=== PATIENT | male | born 1970 | race Caucasian/White ===

== ENCOUNTER 2017-05-28 12:57 | Observation (INO) | payer BC ==
[2017-05-28] VITALS (7 sets, daily range): BP systolic 101–124; BP diastolic 67–75; PULSE 75–102; RESP 16–18; TEMP 98.1–98.4; O2SAT 95–100
[~2017-05-28 12:57] MED LIST: DEXAMETHASONE SOD PHOS 4 MG/ML VIAL IV ONE; GLYCOPYRROLATE 1 MG/5 ML SYRINGE IV PUSH ONE; KETOROLAC TROMETHAMINE 30 MG/ML (IVP) VIAL IV PUSH ONE; LABETALOL HCL 100 MG/20 ML VIAL IV ONE; LIDOCAINE HCL 1% PF 5 ML AMPULE OTHER ONE; MIDAZOLAM HCL 2 MG/2 ML VIAL IV ONE; NEOSTIGMINE 3 MG/3 ML SYR IV ONE; ONDANSETRON HCL 4 MG/2 ML VIAL IV PUSH ONE; PHENYLEPH/NS 1000 MCG/10 ML SYR IV ONE; PROPOFOL 200 MG/20 ML AMP IV ONE; ROCURONIUM INJ 50 MG/5 ML SYRINGE IV PUSH ONE; SODIUM CHLOR 0.9% 1000 ML INJ 1,000 ML IV ONE; SUCCINYLCHOLINE CHLORIDE 100 MG/5 ML SYRINGE IV PUSH ONE; VECURONIUM BROMIDE 20 MG VIAL IV ONE
[2017-05-28] MEDS ORDERED: NS + KCL 20 MEQ INJ 1,000 ML IV SCH (14:15)
[2017-05-28] MEDS ORDERED: CLINDAMYCIN 600 MG PREMIX 50 ML IV ONE (14:15)
--- NOTE | 2017-05-28 14:15 | PD ---
HPI Chief Complaint: Facial Pain or Swelling Time Seen by Provider: 13:54 Travel History International Travel<30 days: No Contact w/Intl Traveler<30days: No Traveled to known affect area: No History of Present Illness HPI The patient is a 46-year-old male who presents emergency department for left jaw swelling over the last week. The patient was seen by his dentist in [place], [place], one week ago. The patient was placed on clindamycin. However, he states the swelling got worse and he has been unable to open his mouth for the last several days. The patient saw the oral maxillofacial surgeon , Dr. Tavares, this morning in the office and [place], [place]. The patient was referred to the hospital for CT of the facial bones with IV contrast , admission to the medical service, with operative management later today. Patient states he has difficulty opening his mouth secondary to pain with limited range of motion. He has been able to drink fluids through a straw. He denies any shortness of breath or chest pain. The patient did receive Unasyn and Decadron in Dr. Tavares's office prior to arrival. The patient denies any chronic medical problems. He takes no medications on a regular basis except for clindamycin which was recently prescribed. He does have a history of tobacco use. [facility] Past Medical History Medical History: Denies Significant Hx Diminished Hearing: No Tetanus Vaccination: > 5 Years Influenza Vaccination: No Past Surgical History Surgical History: No Previous Surgery Social History Alcohol Use: No Tobacco Use: Yes (2ppd) Substance Use: No Allergies-Medications (Allergen,Severity, Reaction): Coded Allergies: No Known Allergies (Unverified , 05/28/17) Reported Meds & Prescriptions Reported Meds & Active Scripts Active No Active Prescriptions or Reported Medications Review of Systems Except as stated in HPI: all other systems reviewed are Neg General / Constitutional: No: Fever HENT: Positive: Other (as noted in the history of present illness), No: Lightheadedness Cardiovascular: No: Chest Pain or Discomfort Respiratory: No: Shortness of Breath Gastrointestinal: No: Nausea, Vomiting, Abdominal Pain Musculoskeletal: No: Weakness Neurologic: No: Dizziness Physical Exam Narrative GENERAL: Awake, alert, pleasant 46-year-old male who appears his stated age and is in no acute respiratory distress. SKIN: Focused skin assessment warm/dry. HEAD: Atraumatic. Normocephalic. EYES: Pupils equal and round. No scleral icterus. No injection or drainage. ENT: No nasal bleeding or discharge. Patient has visible trismus. Limited range of motion with opening her mouth. Mild tenderness upon the lawn were posterior aspect of the mouth. Swelling over the left maxilla and mandibular area noted. NECK: Trachea midline. No JVD. Mild left cervical adenopathy noted. CARDIOVASCULAR: Regular, tachycardic with a heart rate of 102. RESPIRATORY: No accessory muscle use. Clear to auscultation. Breath sounds equal bilaterally. GASTROINTESTINAL: Abdomen soft, non-tender, nondistended. No rebound tenderness. MUSCULOSKELETAL: No obvious deformities. No clubbing. No cyanosis. No edema. NEUROLOGICAL: Awake and alert. No obvious cranial nerve deficits. Motor grossly within normal limits. Normal speech. PSYCHIATRIC: Appropriate mood and affect; insight and judgment normal. Data Data Last Documented VS Vital Signs Date Time Temp Pulse Resp B/P (MAP) Pulse Ox O2 Delivery O2 Flow Rate FiO2 05/28/17 15:39 87 16 106/69 (81) 97 Room Air Orders Orders Complete Blood Count With Diff (05/28/17 13:16) Basic Metabolic Panel (Bmp) (05/28/17 13:16) Coag Profile (05/28/17 13:16) Ns + Kcl 20 Meq Inj (Ns + Kcl 20 Meq Inj (05/28/17 14:15) Clindamycin 600 Mg Premix (Cleocin 600 M (05/28/17 14:15) NPO (05/28/17 14:04) Ct Facial Bones W Iv Contrast (05/28/17 ) Admit Order (Ed Use Only) (05/28/17 ) Vital Signs (Adult) Q4H (05/28/17 15:45) Diet Npo (05/28/17 Dinner) Activity Oob With Assistance (05/28/17 15:45) Consult Oral, Facial Surgery (05/28/17 ) Labs Laboratory Tests Test 05/28/17 14:15 White Blood Count 11.1 TH/MM3 Red Blood Count 4.99 MIL/MM3 Hemoglobin 15.8 GM/DL Hematocrit 45.8 % Mean Corpuscular Volume 91.8 FL Mean Corpuscular Hemoglobin 31.7 PG Mean Corpuscular Hemoglobin Concent 34.5 % Red Cell Distribution Width 12.8 % Platelet Count 394 TH/MM3 Mean Platelet Volume 7.2 FL Neutrophils (%) (Auto) 91.8 % Lymphocytes (%) (Auto) 5.9 % Monocytes (%) (Auto) 1.3 % Eosinophils (%) (Auto) 0.6 % Basophils (%) (Auto) 0.4 % Neutrophils # (Auto) 10.2 TH/MM3 Lymphocytes # (Auto) 0.7 TH/MM3 Monocytes # (Auto) 0.1 TH/MM3 Eosinophils # (Auto) 0.1 TH/MM3 Basophils # (Auto) 0.0 TH/MM3 CBC Comment DIFF FINAL Differential Comment Prothrombin Time 11.0 SEC Prothromb Time International Ratio 1.0 RATIO Activated Partial Thromboplast Time 30.1 SEC Blood Urea Nitrogen 5 MG/DL Creatinine 0.77 MG/DL Random Glucose 102 MG/DL Calcium Level 9.5 MG/DL Sodium Level 139 MEQ/L Potassium Level 4.6 MEQ/L Chloride Level 104 MEQ/L Carbon Dioxide Level 29.6 MEQ/L Anion Gap 5 MEQ/L Estimat Glomerular Filtration Rate 108 ML/MIN [facility] Medical Decision Making Medical Screen Exam Complete: Yes Emergency Medical Condition: Yes Medical Record Reviewed: Yes Interpretation(s) Laboratory Tests Test 05/28/17 14:15 White Blood Count 11.1 TH/MM3 Red Blood Count 4.99 MIL/MM3 Hemoglobin 15.8 GM/DL Hematocrit 45.8 % Mean Corpuscular Volume 91.8 FL Mean Corpuscular Hemoglobin 31.7 PG Mean Corpuscular Hemoglobin Concent 34.5 % Red Cell Distribution Width 12.8 % Platelet Count 394 TH/MM3 Mean Platelet Volume 7.2 FL Neutrophils (%) (Auto) 91.8 % Lymphocytes (%) (Auto) 5.9 % Monocytes (%) (Auto) 1.3 % Eosinophils (%) (Auto) 0.6 % Basophils (%) (Auto) 0.4 % Neutrophils # (Auto) 10.2 TH/MM3 Lymphocytes # (Auto) 0.7 TH/MM3 Monocytes # (Auto) 0.1 TH/MM3 Eosinophils # (Auto) 0.1 TH/MM3 Basophils # (Auto) 0.0 TH/MM3 CBC Comment DIFF FINAL Differential Comment Prothrombin Time 11.0 SEC Prothromb Time International Ratio 1.0 RATIO Activated Partial Thromboplast Time 30.1 SEC Blood Urea Nitrogen 5 MG/DL Creatinine 0.77 MG/DL Random Glucose 102 MG/DL Calcium Level 9.5 MG/DL Sodium Level 139 MEQ/L Potassium Level 4.6 MEQ/L Chloride Level 104 MEQ/L Carbon Dioxide Level 29.6 MEQ/L Anion Gap 5 MEQ/L Estimat Glomerular Filtration Rate 108 ML/MIN Differential Diagnosis Differential diagnosis includes dental abscess, trismus, Adonay angina, sialoadenitis, otitis media, cellulitis. Narrative Course IV was established, labs are drawn and sent, and the patient was placed on cardiac telemetry monitoring and continuous pulse oximetry monitoring. I discussed the patient with Dr. Tavares who requests the patient be kept nothing by mouth, CT of the facial bones with IV contrast, and admission to the medical service for definitive operative management later today. He does state the patient received Unasyn 1.5 g and Decadron 8 mg prior to arrival. The patient was placed on IV fluids and administered clindamycin 600 mg intravenously. A call was placed to the on-call medical service for admission. Labs are unremarkable. Physician Communication Physician Communication The on-call medical service was paged for admission. I discussed the patient with Dr. Georges who agrees with 23 hour observation. Diagnosis Primary Impression: Dental abscess Admitting Information Admitting Physician Requests: Admit Scripts No Active Prescriptions or Reported Meds Condition: Stable Tristan Hood MD May 28, 2017 14:15
[2017-05-28 14:58] LABS: AUTOMATED NEUTROPHIL # 10.2 TH/MM3 (1.8-7.7); BASOPHIL % 0.4 % (0.0-2.0); EOSINOPHIL # 0.1 TH/MM3 (0-0.4); EOSINOPHIL % 0.6 % (0.0-4.0); HEMATOCRIT 45.8 % (39.0-51.0); HEMO FLAGS DIFF FINAL; LYMPH % 5.9 % (9.0-44.0); LYMPHOCYTE # 0.7 TH/MM3 (1.0-4.8); MEAN CELL VOLUME 91.8 FL (80.0-100.0); MEAN CORPUSCULAR HEMOGLOBIN 31.7 PG (27.0-34.0); MEAN CORPUSCULAR HGB CONC 34.5 % (32.0-36.0); MONO % 1.3 % (0.0-8.0); NEUT % 91.8 % (16.0-70.0); PLATELET COUNT 394 TH/MM3 (150-450); RED BLOOD COUNT 4.99 MIL/MM3 (4.50-5.90); RED CELL DISTRIBUTION WIDTH 12.8 % (11.6-17.2); WHITE BLOOD COUNT 11.1 TH/MM3 (4.0-11.0)
[2017-05-28 15:07] LABS: BICARBONATE 29.6 MEQ/L (21.0-32.0); POTASSIUM 4.6 MEQ/L (3.5-5.1)
[2017-05-28 15:21] LABS: APTT (PATIENT) 30.1 SEC (24.3-30.1)
[2017-05-28] MEDS ORDERED: IOHEXOL 350 MG/ML 10 ML VIAL (for RAD DIAG) IVCONTRAST ONE (15:50)
[2017-05-28] MEDS ORDERED: NALOXONE HCL 0.4 MG/ML AMP IV PUSH PRN (16:00)
[2017-05-28] MEDS ORDERED: SODIUM CHLORIDE 0.9% FLUSH 10 ML FLUSH IV FLUSH PRN (16:00)
--- NOTE | 2017-05-28 16:23 | RADRPT ---
EXAM DATE/TIME: 05/28/2017 15:47 [facility] COMPARISON: No previous studies available for comparison. INDICATIONS : Left mandible swelling x 1 week. Evaluate for abscess. IV CONTRAST: 70 cc Omnipaque 350 (iohexol) IV RADIATION DOSE: 30.62 CTDIvol (mGy) MEDICAL HISTORY : None SURGICAL HISTORY : None. ENCOUNTER: Initial ACUITY: 1 week PAIN SCALE: 7/10 LOCATION: Left facial TECHNIQUE: Volumetric scanning of the facial bones was performed. Using automated exposure control and adjustme nt of the mA and/or kV according to patient size, radiation dose was kept as low as reasonably achiev able to obtain optimal diagnostic quality images. DICOM format image data is available electronicall y for review and comparison. FINDINGS: There is an impacted left third mandibular molar. There is surrounding lucency consistent with period ontal disease. There is erosion through the lateral cortical margin of the mandible. Directly adjacen t within the masseter muscle on the left is low attenuation change consistent with an infectious proc ess. This measures 2.4 x 1.0 cm. I see no air bubbles within this. Hounsfield units are 42. Small sub mandibular lymph nodes are noted without bulky adenopathy. CONCLUSION: 1. Impacted left third mandibular molar with infectious process including either phlegmon or early ab scess formation involving the deep portion of the left masseter muscle. Berhane Hernandez Jr., MD on May 28, 2017 at 16:17 Board Certified Radiologist. This report was verified electronically.
[2017-05-28] MEDS: SODIUM CHLOR 0.9% 1000 ML INJ 1,000 ML IV SCH ×2 (16:41→22:13)
[2017-05-28] MEDS ORDERED: MICROFIBRILLAR COLLAGEN HEMOSTAT 1 GM PKT ONE (16:56)
[2017-05-28] MEDS ORDERED: CHLORHEXIDINE GLUCONATE 0.12% 15 ML CUP ONE (16:56)
[2017-05-28] MEDS ORDERED: LIDOCAINE 2%/EPINEPHrine PF 1:200,000 20ML SDV ONE (16:57)
--- NOTE | 2017-05-28 17:09 | MB ---
cc: HOMERO TAVARES DMD DATE OF CONSULTATION: 05/28/2017 REASON FOR CONSULTATION: Dental abscess. HISTORY OF PRESENT ILLNESS: This is a 46 year-old male who came to my office early this morning secondary to having discomfort in his lower posterior mandible, he has had trismus. This has been going on for one week and not resolving with the Clindamycin. His dentist is Dr. Duncan. Patient is awake, alert and oriented, times three. No acute distress. Denies any fevers, chills, nausea and vomiting, any shortness of breath or any difficulty breathing. His only chief complaint is he is unable to open his mouth. He was given Unasyn 1.5 mg and Decadron 8 mg then he was sent to [facility] Emergency Department for admission and to take him to the main operating room for extraction of teeth numbers 17 and 18 and incision and drainage of his left mandible abscess. PAST MEDICAL HISTORY: Denied. MEDICATIONS: Denied. ALLERGIES Denied. SOCIAL HISTORY: Two packs per day of smoking. Denies any alcohol, any illicit drug use. PAST SURGICAL HISTORY: Denies. PHYSICAL EXAMINATION: HEAD, EYES, EARS, NOSE, AND THROAT/NECK: Shows some edema in the left maxillary region. There is no neck edema. There is no edema in the posterior aspect of the mandible. Trachea is midline. The angle of the mandible is palpable. Tenderness to palpation on the left maxillary mandible posterior region. Intraorally he has trismus and can barely get one finger into his mouth. He is guarding against pain. There does not appear to be any elevation of the tongue, he is able to move his tongue freely. He is holding his secretions. A Panorex in office shows tooth number 17 which is impacted with radiolucency all around that tooth. Tooth number 18 also looks periodontally involved. CT scan here in the hospital shows tooth number 17 again has a radiolucency around it with a tracts way into the lateral aspect of the mandible, even appears the medial aspect a collection that is noted. Number 18 is also periodontally involved. The position of the nerve is also noted in the 10 lingual cortex. Also noted; is tooth number 31 has a poor prognosis and impacted tooth #30 along with impacted #1 and 16. LABORATORY FINDINGS: White count 11.1 with hemoglobin and hematocrit 15.8 and 45.5 with platelets 394, PT 7.0, INR 1.0 with PTT of 30.0. PHYSICAL EXAMINATION: VITAL SIGNS; Temperature 98.4, respirations 16, blood pressure 106/210, oxygen saturations are 97%. IMPRESSION/PLAN: This is a 46 year-old male, [employer] who has a one week history of swelling in left posterior mandible, trismus worsening with impacted complete bony wisdom tooth number 17 and a periodontally involved #18. Also other wisdom teeth are impacted and tooth #31, that will be addressed at a later time. Right now the plan is to take him to the operating room and extract tooth number 18 and 17, incision and drainage of the left mandible abscess, cough, and possible biopsy of the radiolucency as required around number 17. Benefits, risks and indications of the procedure, procedure in detail with the options of nontreatment including alternatives were discussed with this patient. The risks were not limited to any postoperative infection, bleeding, damage to the edges of teeth, soft tissue, hard tissue and anesthesia complications, numbness, recurrence of the infection, further surgeries as required. The patient is aware we may do some of the drains through the neck. The patient was also counseled on maintaining good oral hygiene has he has poor dentition and poor oral hygiene. All questions and concerns were discussed. His temperature now is 98.4. ADDENDUM CT scan also checking the neck there is no airway deviation. No constriction of the airway that is noted. Homero Tavares DMD RRT/ /4:34 PM /8:28 AM
[2017-05-28] MEDS ORDERED: MIDAZOLAM HCL 2 MG/2 ML VIAL ONE (17:19)
[2017-05-28] MEDS ORDERED: ACETAMINOPHEN 1000 MG/100 ML 100 ML IV ONE (18:05)
[2017-05-28] MEDS ORDERED: GELATIN 12 MM/7 MM FOAM ONE (18:30)
[2017-05-28] MEDS ORDERED: BUPIVACAINE/EPINEPHRINE 0.5% PF 30 ML VIAL ONE (18:44)
--- NOTE | 2017-05-28 19:18 | HHI.PR ---
Immediate Post Op Note Procedure Date: May 28, 2017 Pre Op Diagnosis: decayed/periodontally involved tooth #18, impacted tooth 17 dental abscess left mandible Post Op Diagnosis: ana Surgeon: Stefan Tavares Driveway Attendant(s): chapito luis Procedure: surgical extraction of tooth #17/18 I&D left mandible abscess - masseteric space biopsy tissue/lesion 17 site exam under anesthesia Complications: none Specimen(s) removed: tissue/lesion around tooth #17 - sent to path pus - lateral mandible masseteric space - culture Estimated blood loss: 20 cc Anesthesia: General, Local (2%lidocaine with 1:200,000 epi 3cc 0.5% marcaine with 1:200, 000 epi 2cc) Drains: Misael (1/4 inch misael drain intraora - left posterior mandible) Patient to: PACU Patient Condition: Good Date/Time of Procedure: SEE SURGICAL CARE RECORD Stefan Tavares DMD May 28, 2017 19:18
[2017-05-28] MEDS ORDERED: methylPREDNISolone SOD SUCC 125 MG/2 ML VIAL ONE (19:49)
--- NOTE | 2017-05-28 20:39 | HHI.HP ---
[facility] Unknown Admission Diagnosis left dental abscess with trismus Diagnoses: Travel History International Travel<30 Days: No Contact w/Intl Traveler <30 Da: No Traveled to Known Affected Are: No History of Present Illness 46-year-old male presented to the emergency department for left jaw and face swelling that has worsened over the past week. He was seen in [place] approximately 1 week ago and was placed on clindamycin. Despite compliance with the medication, the patient's pain and swelling worsened and he was unable to open his mouth for the past several days. He was seen by OMFS, Dr. Tavares, this morning and referred to the hospital for CT of the facial bones with IV contrast and operative management. CT of the facial bones significant for impacted left third mandibular molar with infectious process and early abscess formation involving the deep portion of the masseter muscle. Patient underwent surgical extraction of tooth #17/18 and I&D of the left mandibular abscess this afternoon. He is seen postoperatively, doing well. He states his pain is well controlled. He denies any history of fever/chills. Review of Systems Denies fever or chills Denies blurry vision, otorrhea, rhinorrhea Denies sore throat and cough No chest pain, palpitations, shortness of breath No abdominal pain Denies constipation/diarrhea/nausea/vomiting Denies muscle pain/weakness No rashes Past Family Social History Past Medical History None Past Surgical History None Reported Medications None Allergies: Coded Allergies: No Known Allergies (Unverified , 05/28/17) Family History Father with diabetes. Social History Smokes 2 packs per day 30 years. Rare alcohol use. Denies marijuana or illicit drugs. Physical Exam Vital Signs Vital Signs Date Time Temp Pulse Resp B/P (MAP) Pulse Ox O2 Delivery O2 Flow Rate FiO2 05/28/17 19:45 98.1 84 14 124/79 (94) 97 Nasal Cannula 2 05/28/17 19:30 85 12 133/80 (97) 97 Nasal Cannula 2 05/28/17 19:15 92 15 128/80 (96) 97 Nasal Cannula 2 05/28/17 19:11 98.0 97 20 134/75 (94) 98 Nasal Cannula 2 05/28/17 17:20 95 16 108/75 (86) 96 05/28/17 16:34 98.4 05/28/17 15:39 87 16 106/69 (81) 97 Room Air 05/28/17 14:36 92 17 101/67 (78) 97 Room Air 05/28/17 12:58 102 16 116/75 (89) 100 Physical Exam GENERAL: male sitting up in bed SKIN: No rashes, ecchymoses or lesions. Cool and dry. HEAD: Atraumatic. Normocephalic. No temporal or scalp tenderness. EYES: Pupils equal round and reactive. Extraocular motions intact. No scleral icterus. No injection or drainage. ENT: Nose without bleeding, purulent drainage or septal hematoma. Patient unable to open his mouth completely, has gauze in left side of mouth with scant blood. Area is hemostatic. NECK: Trachea midline. No JVD or lymphadenopathy. Supple, nontender, no meningeal signs. CARDIOVASCULAR: Regular rate and rhythm without murmurs, gallops, or rubs. RESPIRATORY: Clear to auscultation. Breath sounds equal bilaterally. No wheezes , rales, or rhonchi. GASTROINTESTINAL: Abdomen soft, non-tender, nondistended. No hepato-splenomegaly , or palpable masses. No guarding. MUSCULOSKELETAL: Extremities without clubbing, cyanosis, or edema. No joint tenderness, effusion, or edema noted. No calf tenderness. Negative Homans sign bilaterally. NEUROLOGICAL: Awake and alert. Cranial nerves II through XII intact. Motor and sensory grossly within normal limits. Normal speech. Laboratory Laboratory Tests Test 05/28/17 14:15 White Blood Count 11.1 Red Blood Count 4.99 Hemoglobin 15.8 Hematocrit 45.8 Mean Corpuscular Volume 91.8 Mean Corpuscular Hemoglobin 31.7 Mean Corpuscular Hemoglobin Concent 34.5 Red Cell Distribution Width 12.8 Platelet Count 394 Mean Platelet Volume 7.2 Neutrophils (%) (Auto) 91.8 Lymphocytes (%) (Auto) 5.9 Monocytes (%) (Auto) 1.3 Eosinophils (%) (Auto) 0.6 Basophils (%) (Auto) 0.4 Neutrophils # (Auto) 10.2 Lymphocytes # (Auto) 0.7 Monocytes # (Auto) 0.1 Eosinophils # (Auto) 0.1 Basophils # (Auto) 0.0 CBC Comment DIFF FINAL Differential Comment Prothrombin Time 11.0 Prothromb Time International Ratio 1.0 Activated Partial Thromboplast Time 30.1 Blood Urea Nitrogen 5 Creatinine 0.77 Random Glucose 102 Calcium Level 9.5 Sodium Level 139 Potassium Level 4.6 Chloride Level 104 Carbon Dioxide Level 29.6 Anion Gap 5 Estimat Glomerular Filtration Rate 108 Result Diagram: 05/28/17 1415 05/28/17 1415 Imaging Last Impressions Maxillofacial CT 05/28/17 0000 Signed Impressions: Service Date/Time: Sunday, May 28, 2017 15:47 - CONCLUSION: 1. Impacted left third mandibular molar with infectious process including either phlegmon or early abscess formation involving the deep portion of the left masseter muscle. MD Channing Cerrato Jr. VTE Risk Assessment Channing VTE Risk Assessment: No/Low Risk (score <= 1) Caprini Risk Assessment Model Point Value = 1 Point Value = 2 Point Value = 3 Point Value = 5 Age 41-60 Minor surgery BMI > 25 kg/m2 Swollen legs Varicose veins or History of unexplained or recurrent spontaneous Oral contraceptives or hormone replacement Sepsis (< 1 month) Serious lung disease, including pneumonia (< 1 month) Abnormal pulmonary function Acute myocardial infarction Congestive heart failure (< 1 month) History of inflammatory bowel disease Medical patient at bed rest Age 61-74 Arthroscopic surgery Major open surgery (> 45 min) Laparoscopic surgery (> 45 min) Malignancy Confined to bed (> 72 hours) Immobilizing plaster cast Central venous access Age >= 75 History of VTE Family history of VTE Factor V Leiden Prothrombin [id number] Lupus anticoagulant Anticardiolipin antibodies Elevated serum homocysteine Heparin-induced thrombocytopenia Other congenital or acquired thrombophilia Stroke (< 1 month) Elective arthroplasty Hip, pelvis, or leg fracture Acute spinal cord injury (< 1 month) Prophylaxis Regimen Total Risk Factor Score Risk Level Prophylaxis Regimen 0-1 Low Early ambulation 2 Moderate Order ONE of the following: *Sequential Compression Device (SCD) *Heparin 5000 units SQ BID 3-4 Higher Order ONE of the following medications: *Heparin 5000 units SQ TID *Enoxaparin/Lovenox 40 mg SQ daily (WT < 150 kg, CrCl > 30 mL/min) *Enoxaparin/Lovenox 30 mg SQ daily (WT < 150 kg, CrCl > 10-29 mL/min) *Enoxaparin/Lovenox 30 mg SQ BID (WT < 150 kg, CrCl > 30 mL/min) AND/OR *Sequential Compression Device (SCD) 5 or more Highest Order ONE of the following medications: *Heparin 5000 units SQ TID (Preferred with Epidurals) *Enoxaparin/Lovenox 40 mg SQ daily (WT < 150 kg, CrCl > 30 mL/min) *Enoxaparin/Lovenox 30 mg SQ daily (WT < 150 kg, CrCl > 10-29 mL/min) *Enoxaparin/Lovenox 30 mg SQ BID (WT < 150 kg, CrCl > 30 mL/min) AND *Sequential Compression Device (SCD) Assessment and Plan Assessment and Plan 46-year-old male with impacted teeth and left mandibular abscess, status post tooth extraction and I&D. 1. Impacted tooth 17/18/Left mandibular abscess I&D and tooth extraction this afternoon by Dr. Tavares Clindamycin IV Nothing by mouth IV fluids FEN NS at 100 cc/hr NPO Electrolytes: Monitor and replete prn SCDs Dispo: Pending recommendations from Xin Perla MD May 28, 2017 20:39
[2017-05-28] MEDS ORDERED: MORPHINE SULFATE 2 MG/ML INJ IV PRN (21:45)
[2017-05-28] MEDS ORDERED: DO NOT ADM ANY ANTICOAGULANT DRUGS PRN (21:45)
[2017-05-28] MEDS ORDERED: ACETAMINOPHEN 325MG/HYDROcodone 7.5MG/15ML UDC PO PRN (22:00)
[2017-05-28] MEDS ORDERED: CLINDAMYCIN 900 MG PREMIX 50 ML IV SCH (22:00)
[2017-05-28] MEDS: CLINDAMYCIN INJ 900 MG in SODIUM CHLORIDE 0.9% INJ 50 ML IV SCH (22:12)
[2017-05-28] MEDS: SODIUM CHLORIDE 0.9% FLUSH 10 ML FLUSH IV FLUSH SCH (22:17)
[2017-05-29] VITALS: BP 102/60; PULSE 75; RESP 18; TEMP 97.6; O2SAT 97
[2017-05-29] MEDS: methylPREDNISolone SOD SUCC 125 MG/2 ML VIAL IV SCH ×2 (00:09→00:30)
[2017-05-29 04:00] VITALS: BP 107/70; PULSE 67; RESP 18; TEMP 97.3; O2SAT 96
[2017-05-29] MEDS: CLINDAMYCIN INJ 900 MG in SODIUM CHLORIDE 0.9% INJ 50 ML IV SCH (05:33)
[2017-05-29] MEDS ORDERED: methylPREDNISolone ACETATE 80 MG/ML VIAL IM ONE (06:00)
[2017-05-29 08:00] VITALS: PULSE 65
[2017-05-29 08:13] VITALS: BP 97/66; PULSE 65; RESP 18; TEMP 97.4; O2SAT 100
--- NOTE | 2017-05-29 08:19 | MP ---
cc: HOMERO TAVARES DMD DATE OF SURGERY 05/28/2017 PREOPERATIVE DIAGNOSES 1. Decayed peridontally involved tooth number 18. 2. Also impacted tooth number 17 with a radiolucency around it. 3. Also dental abscess left mandible. POSTOPERATIVE DIAGNOSES 1. Decayed peridontally involved tooth number 18. 1. Also impacted tooth number 17 with a radiolucency around it. 2. Also dental abscess left mandible. PROCEDURE Surgical extraction of tooth number 17 and 18. Incision and drainage of the left mandible abscess masseteric space. Biopsy of the tissues / lesion #17 site and also examination under anesthesia. SURGEON Dr. Tavares EQUIPMENT OILER [place] ANESTHESIA General, also 2% lidocaine with 1:200,000 epinephrine approximately 3 mL, also 0.5% Marcaine with 1:200,000 epinephrine approximately 2 mL. SPECIMEN The tissue, the lesions around #17 sent for path. Also pus that was on the lateral mass at masseteric space was sent for culture. DISPOSITION The patient tolerated the procedure well, extubated and taken to the PACU. HISTORY This is a 46-year-old male that came to my office earlier today with trismus and pain on the region of tooth number 18 and 17 site. It has been going on for a week. And this limb opening his been getting limited limited. I could barely get one finger in his mouth at this point. He was sent to the ED and taken to the operating room to undergo the above listed procedures and to restore proper form and function. Benefits, risks, indications of the procedure, the procedure in detail and the options of no treatment including alternatives were discussed with this patient. Risks not limited to any postop pain, infection, bleeding, damage to the adjacent teeth, soft tissue, hard tissue, anesthesia complications, recurrence of the infection, numbness, fracture, further surgeries as required. All questions and concerns were addressed. Consent is signed in the chart. PROCEDURE DETAILS The patient was met perioperatively. All questions and concerns were addressed. The patient was taken to the operating room number 7, put on the table in supine position. Eyes were taped shut. All pressure points were padded. He underwent oral intubation of the GlideScope. However ratchet mouth prop was used by me to gently open up the mouth. The tube was secured on the right side of the mouth. The patient was prepped with Betadine solution. The patient now draped in normal sterile fashion. At this time a time-out was taken to identify the patient, the site, the procedure, surgeon and all in agreement. Back of throat was suctioned. Moistened Ray-Tobias used as a throat pack. The ratchet mouth prop was in the mouth. I am able to open the mouth more. Peridex mouth rinse was done. A 15 blade was used to make a lateral hockey stick incision in the region of #17. As soon as I did that pus just popped out of there. It was sent for culture at this point. A circular incision was now carried out to tooth #18 and #17, #19 site. Periosteal elevators were used to now reflect off the periosteum and the soft tissue and all the down to the inferior border of the mandible and then I went towards the angle of the mandible. Any residual pus and inflammatory tissue was all curetted and all removed. I did not appreciate any swelling of floor of the mouth or the tongue. I did not really palpate too much as I did not palpate anything on the medial aspect of the mandible. No deviation of the uvula that is noted. A buccal trough was made around tooth number 18. Elevator forceps was used to extract that. Now at this point I could see all of the inflammatory tissue around it, is all curetted out. And I could see the remnants of #17. Had a trough all around that 17 gently removing tooth in the bone. The crown was now sectioned in half and elevator forceps were used to gently remove the crown. And then the bottom stub which is almost like a was again suctioned gently and then elevator forceps were used to gently take the whole thing out in one piece. Note that as soon as I removed that whole one piece of block which came in one piece I could see the notching on the roots. And I looked inside the extraction socket and I could see the nerve traversing through. Nerve is intact and stable. That was all irrigated with saline solution. The granulation tissue versus any cystic lesion was curetted out and sent for path. Just the region of tooth number 17. The socket looks clean and neat. I also then went on medial aspect of the mandible near 17, 18 and no pus was noted. I used the periosteal elevator just going into that site just to make sure there is nothing hiding there. Once this was done, Gelfoam was contoured into the buccal aspect of the socket to minimize the risk of the soft tissue going into the defect there. A quarter-inch Misael drain was placed on the lateral aspect of the mandible going towards the inferior border of the posterior angle region. Attached with the 2-0 silk suture. Finally the extraction site was now closed with a 3-0 chromic suture. Please note that at the end of the procedure was also placed over the #18 site. Back of the throat was suctioned. The throat pack was removed. The ratchet mouth prop was removed. Measurement now shows the patient easily opens up at this point to 35 mm. Meticulous attention was made on the tooth number #17 site when I sectioned it to be very cognizant of the position of the alveolar nerve through that site. Everything looks intact at this point. The socket looks clean. No more pus that I could see at this point. There is no neck edema as I did not feel it necessary to go through the neck. The scan also did not show any collection into the neck. Just on the lateral aspect in the masseteric region and the masseter muscle is sitting in that site also. End of the procedure, the patient was extubated, taken to the PACU. All sponge and needle counts were all accounted for. ADDENDUM At the end of the procedure gauze 4 x 4 which was not part of the count was rolled up and put into the patient's mouth with the tail coming out of the mouth just for hemostasis. ADDENDUM: ANESTHESIA: 2% Lidocaine with 1:200,000 epinephrine was injected infra-alveolar block, also long buccal block during the beginning of the procedure. At the end of the procedure 0.5% Marcaine with 1:200,000 epinephrine was injected again infra-alveolar block, and then again the long buccal block. Homero Tavares DMD STYLE ADVISOR/KK /7:15 PM /8:09 AM
[2017-05-29 08:48] LABS: AUTOMATED NEUTROPHIL # 13.7 TH/MM3 (1.8-7.7); BASOPHIL % 0.1 % (0.0-2.0); HEMATOCRIT 39.9 % (39.0-51.0); HEMO FLAGS DIFF FINAL; LYMPH % 3.8 % (9.0-44.0); LYMPHOCYTE # 0.5 TH/MM3 (1.0-4.8); MEAN CELL VOLUME 92.4 FL (80.0-100.0); MEAN CORPUSCULAR HEMOGLOBIN 31.7 PG (27.0-34.0); MEAN CORPUSCULAR HGB CONC 34.2 % (32.0-36.0); MONO % 1.3 % (0.0-8.0); NEUT % 94.8 % (16.0-70.0); PLATELET COUNT 311 TH/MM3 (150-450); RED BLOOD COUNT 4.32 MIL/MM3 (4.50-5.90); RED CELL DISTRIBUTION WIDTH 13.3 % (11.6-17.2); WHITE BLOOD COUNT 14.5 TH/MM3 (4.0-11.0)
[2017-05-29] MEDS: SODIUM CHLORIDE 0.9% FLUSH 10 ML FLUSH IV FLUSH SCH (09:17)
[2017-05-29 09:25] LABS: BICARBONATE 25.9 MEQ/L (21.0-32.0); POTASSIUM 4.5 MEQ/L (3.5-5.1)
[2017-05-29] MEDS: SODIUM CHLOR 0.9% 1000 ML INJ 1,000 ML IV SCH (09:28)
[2017-05-29 12:10] VITALS: BP 106/69; PULSE 79; RESP 18; TEMP 97.2; O2SAT 99
--- NOTE | 2017-05-29 12:13 | HHI.PR ---
Subjective Remarks In the chair eating. Says she has no problems eating, pain is controlled by meds. and feels better than yesterday, feels comfortable to go home. N n/v/d/c. Objective Vitals Vital Signs Date Time Temp Pulse Resp B/P (MAP) Pulse Ox O2 Delivery O2 Flow Rate FiO2 05/29/17 08:13 97.4 65 18 97/66 (76) 100 05/29/17 08:00 65 05/29/17 04:00 97.3 67 18 107/70 (82) 96 05/29/17 00:00 97.6 75 18 102/60 (74) 97 05/28/17 23:31 75 05/28/17 22:11 97 Nasal Cannula 2.00 05/28/17 20:00 98.1 84 18 124/74 (91) 95 05/28/17 19:45 98.1 84 14 124/79 (94) 97 Nasal Cannula 2 05/28/17 19:30 85 12 133/80 (97) 97 Nasal Cannula 2 05/28/17 19:15 92 15 128/80 (96) 97 Nasal Cannula 2 05/28/17 19:11 98.0 97 20 134/75 (94) 98 Nasal Cannula 2 05/28/17 17:20 95 16 108/75 (86) 96 05/28/17 16:34 98.4 05/28/17 15:39 87 16 106/69 (81) 97 Room Air 05/28/17 14:36 92 17 101/67 (78) 97 Room Air 05/28/17 12:58 102 16 116/75 (89) 100 I/O 05/28/17 05/28/17 05/28/17 05/29/17 05/29/17 05/29/17 07:00 15:00 23:00 07:00 15:00 23:00 Intake Total 1286 ml 956 ml 241 ml Output Total 20 ml Balance 1266 ml 956 ml 241 ml Intake IV Total 286 ml 956 ml 241 ml Other 1000 ml Output Estimated Blood Loss 20 ml # Voids 2 Result Diagram: 05/29/17 0829 05/29/17 0829 Imaging Last Impressions Maxillofacial CT 05/28/17 0000 Signed Impressions: Service Date/Time: Sunday, May 28, 2017 15:47 - CONCLUSION: 1. Impacted left third mandibular molar with infectious process including either phlegmon or early abscess formation involving the deep portion of the left masseter muscle. Berhane Hernandez Jr., MD Objective Remarks GENERAL: male appears in some distress 2/2 pain EYES: Pupils equal round and reactive. Extraocular motions intact. No scleral icterus. No injection or drainage. ENT: Nose without bleeding, purulent drainage or septal hematoma. Patient unable to open his mouth completely, has gauze in left side of mouth with scant blood. Area is hemostatic. NECK: Trachea midline. No JVD or lymphadenopathy. Supple, nontender, no meningeal signs. CARDIOVASCULAR: Regular rate and rhythm without murmurs, gallops, or rubs. RESPIRATORY: Clear to auscultation. Breath sounds equal bilaterally. No wheezes , rales, or rhonchi. GASTROINTESTINAL: Abdomen soft, non-tender, nondistended. No hepato-splenomegaly , or palpable masses. No guarding. MUSCULOSKELETAL: Extremities without clubbing, cyanosis, or edema. No joint tenderness, effusion, or edema noted. No calf tenderness. Negative Homans sign bilaterally. NEUROLOGICAL: Awake and alert. Cranial nerves II through XII intact. Motor and sensory grossly within normal limits. Normal speech. Procedures Diagnosis: decayed/periodontally involved tooth #18, impacted tooth 17 dental abscess left mandible Procedures on 05/28/[address] Tavares maxillo facial surgeon : surgical extraction of tooth #17/18 I&D left mandible abscess - masseteric space biopsy tissue/lesion 17 site exam under anesthesia A/P Assessment and Plan 46-year-old male with impacted teeth and left mandibular abscess, status post tooth extraction and I&D. Decayed/periodontally involved tooth #18, impacted tooth 17 dental abscess left mandible I&D and tooth extraction this afternoon by Dr. Tavares Continue Clindamycin IV . Diet regular as tolerated S/P procedures on 05/28/[address] Tavares maxillo facial surgeon : surgical extraction of tooth #17/18 I&D left mandible abscess - masseteric space biopsy tissue/lesion 17 site exam under anesthesia DVT ppx SCDs Discharge plan pending improvement and clearance [place] [facility] [place]h Agustin MD May 29, 2017 12:13
[2017-05-29] MEDS ORDERED: CLIN300C5 PO (12:18)
[2017-05-29] MEDS ORDERED: NORC5TAB PO (12:18)
[2017-05-29] MEDS ORDERED: LACTCHW3 CHEW (12:19)
--- NOTE | 2017-05-29 12:20 | HHI.DS ---
Discharge Summary Admission Date May 28, 2017 at 15:47 Discharge Date: May 30, 2017 Admitting Diagnosis left dental abscess with trismus (1) Tooth abscess ICD Code: K04.7 - Periapical abscess without sinus Procedures Diagnosis: decayed/periodontally involved tooth #18, impacted tooth 17 dental abscess left mandible Procedures on 05/28/[address] Tavares maxillo facial surgeon : surgical extraction of tooth #17/18 I&D left mandible abscess - masseteric space biopsy tissue/lesion 17 site exam under anesthesia Brief History - From Admission 46-year-old male presented to the emergency department for left jaw and face swelling that has worsened over the past week. He was seen in [place] approximately 1 week ago and was placed on clindamycin. Despite compliance with the medication, the patient's pain and swelling worsened and he was unable to open his mouth for the past several days. He was seen by OMFS, Dr. Tavares, this morning and referred to the hospital for CT of the facial bones with IV contrast and operative management. CT of the facial bones significant for impacted left third mandibular molar with infectious process and early abscess formation involving the deep portion of the masseter muscle. Patient underwent surgical extraction of tooth #17/18 and I&D of the left mandibular abscess this afternoon. He is seen postoperatively, doing well. He states his pain is well controlled. He denies any history of fever/chills. CBC/BMP: 05/29/17 0829 05/29/17 0829 Significant Findings Laboratory Tests Test 05/28/17 14:15 05/29/17 08:29 White Blood Count 11.1 TH/MM3 (4.0-11.0) 14.5 TH/MM3 (4.0-11.0) Neutrophils (%) (Auto) 91.8 % (16.0-70.0) 94.8 % (16.0-70.0) Lymphocytes (%) (Auto) 5.9 % (9.0-44.0) 3.8 % (9.0-44.0) Neutrophils # (Auto) 10.2 TH/MM3 (1.8-7.7) 13.7 TH/MM3 (1.8-7.7) Lymphocytes # (Auto) 0.7 TH/MM3 (1.0-4.8) 0.5 TH/MM3 (1.0-4.8) Blood Urea Nitrogen 5 MG/DL (7-18) Red Blood Count 4.32 MIL/MM3 (4.50-5.90) Random Glucose 141 MG/DL (74-106) Imaging Last Impressions Maxillofacial CT 05/28/17 0000 Signed Impressions: Service Date/Time: Sunday, May 28, 2017 15:47 - CONCLUSION: 1. Impacted left third mandibular molar with infectious process including either phlegmon or early abscess formation involving the deep portion of the left masseter muscle. Berhane Hernandez Jr., MD PE at Discharge GENERAL: male appears in some distress 2/2 pain EYES: Pupils equal round and reactive. Extraocular motions intact. No scleral icterus. No injection or drainage. ENT: Nose without bleeding, purulent drainage or septal hematoma. Patient unable to open his mouth completely, has gauze in left side of mouth with scant blood. Area is hemostatic. NECK: Trachea midline. No JVD or lymphadenopathy. Supple, nontender, no meningeal signs. CARDIOVASCULAR: Regular rate and rhythm without murmurs, gallops, or rubs. RESPIRATORY: Clear to auscultation. Breath sounds equal bilaterally. No wheezes , rales, or rhonchi. GASTROINTESTINAL: Abdomen soft, non-tender, nondistended. No hepato-splenomegaly , or palpable masses. No guarding. MUSCULOSKELETAL: Extremities without clubbing, cyanosis, or edema. No joint tenderness, effusion, or edema noted. No calf tenderness. Negative Homans sign bilaterally. NEUROLOGICAL: Awake and alert. Cranial nerves II through XII intact. Motor and sensory grossly within normal limits. Normal speech. Hospital Course 46-year-old male with impacted teeth and left mandibular abscess, status post tooth extraction and I&D. Decayed/periodontally involved tooth #18, impacted tooth 17 dental abscess left mandible I&D and tooth extraction this afternoon by Dr. Tavares Continue Clindamycin IV . Diet regular as tolerated S/P procedures on 05/28/[address] Tavares maxillo facial surgeon : surgical extraction of tooth #17/18 I&D left mandible abscess - masseteric space biopsy tissue/lesion 17 site exam under anesthesia DVT ppx SCDs Patient improved, tolerated food pain is controlled by meds. Patient is cleared for DC by OMFS, to follow up as Op with PCP and OMFS. Pt Condition on Discharge: Stable Discharge Disposition: Discharge Home Discharge Time: > 30 minutes Discharge Instructions DIET: Follow Instructions for: As Tolerated, No Restrictions Activities you can perform: Regular-No Restrictions Follow up Referrals: Oral Maxillary Surgery - 05/30/17 with [facility] Follow-up - 2-3 Days New Medications: Clindamycin (Clindamycin) 300 Mg Cap 300 MG PO TID for Infection, #30 CAP 0 Refills Hydrocodone-Acetaminophen (Wagner) 5 Mg-325 Mg Tab 1 TAB PO Q6H PRN for PAIN, #30 TAB 0 Refills Lactobacillus Acidophilus (Lactinex) 1 Chew 1 TAB CHEW BID for Nutritional Supplement, #60 TAB 0 Refills Trinh Agustin MD May 29, 2017 12:20
--- NOTE | 2017-05-29 13:27 | HHI.PR ---
Subjective Remarks POD #1 s.p extraction teeth # 17/18 culture and biopsy extraction site 17 I&D left and mandible/masseteric space abscess Pt seen and examined this am aaox3 , nad, denies f/c/n/v/sob/difficulty swallowing reports feeling much better, wants to go home ambulating, tolerating po Objective Vital Signs Date Time Temp Pulse Resp B/P (MAP) Pulse Ox O2 Delivery O2 Flow Rate FiO2 05/29/17 12:10 97.2 79 18 106/69 (81) 99 05/29/17 08:13 97.4 65 18 97/66 (76) 100 05/29/17 08:00 65 05/29/17 04:00 97.3 67 18 107/70 (82) 96 05/29/17 00:00 97.6 75 18 102/60 (74) 97 05/28/17 23:31 75 05/28/17 22:11 97 Nasal Cannula 2.00 05/28/17 20:00 98.1 84 18 124/74 (91) 95 05/28/17 19:45 98.1 84 14 124/79 (94) 97 Nasal Cannula 2 05/28/17 19:30 85 12 133/80 (97) 97 Nasal Cannula 2 05/28/17 19:15 92 15 128/80 (96) 97 Nasal Cannula 2 05/28/17 19:11 98.0 97 20 134/75 (94) 98 Nasal Cannula 2 05/28/17 17:20 95 16 108/75 (86) 96 05/28/17 16:34 98.4 05/28/17 15:39 87 16 106/69 (81) 97 Room Air 05/28/17 14:36 92 17 101/67 (78) 97 Room Air I/O 05/28/17 05/28/17 05/28/17 05/29/17 05/29/17 05/29/17 07:00 15:00 23:00 07:00 15:00 23:00 Intake Total 1286 ml 956 ml 241 ml Output Total 20 ml Balance 1266 ml 956 ml 241 ml Intake IV Total 286 ml 956 ml 241 ml Other 1000 ml Output Estimated Blood Loss 20 ml # Voids 2 Result Diagram: 05/29/1782805/29/17828 Objective Remarks left mandible/facial edema decreased extraction and i & d sites hemostatic no drainage noted, wound margins well approximated, sutures/drain intact no elevation fom/tongue increase in mouth opening to two finger width wide no neck edema/trach midline Assessment and Plan Assessment and Plan POD #1 s.p extraction teeth # 17/18 culture and biopsy extraction site 17 I&D left and mandible/masseteric space abscess path/final culture pending afebrile, increase in wbc c/w steroids/surgical procedure clinically significantly improved ok to d/c to home from oms standpoint f/up tomorrow -for drain removal, [facility] [phone] no drinking with straw mechanically soft diet Stefan Tavares DMD May 29, 2017 13:27
== END 2017-05-29 14:18 | disposition home or self-care (01) ==
LOC: NEPD 12:57 → NEDA 15:47 → N05B 20:20
PROVIDERS: ADMIT Hospitalist; ATTEND Hospitalist
DX: K04.7 Periapical abscess without sinus (principal); R25.2 Cramp and spasm; K01.1 Impacted teeth; F17.200 Nicotine dependence, unspecified, uncomplicated; K02.9 Dental caries, unspecified
CPT/HCPCS: 00170; 41800; 41899; 70487; 80048; 85025; 85610; 85730; 87015; 87070; 87102; 87116; 87205; 87206; 88305; 96361; 96365; 96366; 96375; 96376; 99285; G0378; J0131; J0330; J1040; J1100; J1885; J2250; J2370; J2405; J2710; J2930; J3010; J3480; J7030; Q9967; 88304